=== PATIENT | male | born 1970 | race Caucasian/White ===

== ENCOUNTER 2021-06-29 11:30 | Emergency (ER) | payer SELFPAY ==
[2021-06-29 12:31] LABS: BASOPHIL 0.5 % (0-2); EOSINOPHIL 0.3 % (0-5); HCT 45.1 % (42.0-52.0); HGB 16.6 g/dl (13.2-18.0); LYMPHOCYTE 15.1 % (15-48); MCH 36.9 pg (25.0-31.0); MCHC 36.8 g/dL (32.0-36.0); MCV 100.2 fL (78.0-100.0); MONOCYTE 9.8 % (0-12); NEUTROPHIL 73.5 % (41-80); NRBC 0.2; PLT 230 K/uL (150-400); RDW 11.9 % (11.5-14.0); WBC 8.8 K/uL (4.0-10.5)
[2021-06-29 13:00] LABS: ALBUMIN 3.7 g/dL (3.4-5.0); BUN/CREAT RATIO (CALC) 7.6 RATIO; CREATININE 0.66 mg/dL (0.67-1.17); GLOBULIN (CALCULATION) 3.3 g/dL; POTASSIUM 3.4 mmol/L (3.5-5.1)
[2021-06-29] MEDS ORDERED: PRINIVIL10 MG PO (14:09)
== END 2021-06-29 14:25 | disposition home or self-care (01) ==
LOC: FER 11:30
PROVIDERS: Emergency Medicine
DX: S22.31XA Fracture of one rib, right side, initial encounter for closed fracture (principal); J98.01 Acute bronchospasm; I10 Essential (primary) hypertension; F17.200 Nicotine dependence, unspecified, uncomplicated
CPT/HCPCS: 36415; 71045; 80053; 84484; 85025; 85379; 94640; 94664; J3490